=== PATIENT | male | born 1975 | race Caucasian/White ===

== ENCOUNTER 2020-10-26 12:44 | Emergency (ER) | payer BC ==
--- NOTE | 2020-10-26 13:10 | EDM.PDOC ---
ED HPI GENERAL MEDICAL PROBLEM - General Stated Complaint: HIT HIS HEAD Time Seen by Provider: 10/26/20 12:58 Source of Information: Reports: Patient - History of Present Illness INITIAL COMMENTS - FREE TEXT/NARRATIVE: Misha is a 45 y/o male who comes to the ER after he bent over and hit his head on his stove this AM about 9 AM. He is currently on Xarelto for Atrial Fib. He did not have any LOC and denies any nausea/vomiting, or dizziness. He went to work and was going about his normal workday and then a co-worked advised him that if he hit his head and was on blood thinners he probably should be seen in the ER so he called the clinic and was advised to be seen. He is overall doing fine. - Related Data Allergies Allergy/AdvReac Type Severity Reaction Status Date / Time No Known Allergies Allergy Verified 10/26/20 13:15 Home Meds: Home Meds . [Unable to Verify Home Med List] 10/26/20 [History] Review of Systems - Review of Systems Review Of Systems: See Below Constitutional: Reports: No Symptoms Eyes: Reports: No Symptoms Ears: Reports: No Symptoms Nose: Reports: No Symptoms Mouth/Throat: Reports: No Symptoms Respiratory: Reports: No Symptoms Cardiovascular: Reports: No Symptoms GI/Abdominal: Reports: No Symptoms Genitourinary: Reports: No Symptoms Musculoskeletal: Reports: No Symptoms Skin: Reports: No Symptoms Neurological: Reports: No Symptoms Psychiatric: Reports: No Symptoms ED EXAM, GENERAL - Physical Exam Exam: See Below General Appearance: Alert, WD/WN, No Apparent Distress (Adult male), Obese Eye Exam: Bilateral Eye: PERRL Ears: Normal External Exam, Hearing Grossly Normal Nose: Normal Inspection, Normal Mucosa Throat/Mouth: Normal Inspection, Normal Lips, Normal Teeth, Normal Voice, No Airway Compromise Head: Atraumatic, Normocephalic Neck: Normal Inspection, Supple Respiratory/Chest: No Respiratory Distress, Lungs Clear, Chest Non-Tender Cardiovascular: Normal Peripheral Pulses, Regular Rate, Rhythm, No Edema, No Murmur GI/Abdominal: Normal Bowel Sounds, Soft, Non-Tender (Male) Exam: Deferred Rectal (Males) Exam: Deferred Back Exam: Normal Inspection Extremities: Normal Inspection, Normal Range of Motion, Normal Capillary Refill Neurological: Alert, Oriented, CN II-XII Intact, Normal Cognition, Normal Gait, No Motor/Sensory Deficits Psychiatric: Normal Affect, Normal Mood Skin Exam: Warm, Dry, Intact, Normal Color Lymphatic: No Adenopathy Course - Vital Signs Text/Narrative:: 1258 The patient was seen by the SOFTWARE VALIDATION TECHNICIAN. Labs and Head CT ordered. 1355 CT reviewed, negative. CBC stable. Results reviewed with patient. He was given precautions and advised to continue medications as prescribed. Written instructions were given and he left the ER in stable condition. Last Recorded V/S: Last Vital Signs Temp 36.2 C 10/26/20 13:15 Pulse 54 L 10/26/20 13:15 Resp 14 10/26/20 13:15 BP 140/92 H 10/26/20 13:15 Pulse Ox 98 10/26/20 13:15 - Orders/Labs/Meds Labs: Laboratory Tests 10/26/20 Range/Units 13:15 WBC 5.9 (4.0-10.0) x10^3/uL RBC 4.90 (4.5-6.0) x10^6/uL Hgb 14.7 (14.0-18.0) g/dL Hct 41.6 (40.0-52.0) % MCV 84.9 (78.0-93.0) fL MCH 30.0 (26.0-32.0) pg MCHC 35.3 (32.0-36.0) g/dL RDW Coeff of Justino 13.3 (10.0-15.0) % Plt Count 190 (130-400) x10^3/uL Neut % (Auto) 59.3 (50.0-80.0) % Lymph % (Auto) 29.3 (25.0-50.0) % [place] % (Auto) 9.0 (2.0-11.0) % Eos % (Auto) 1.7 (0.0-4.0) % Baso % (Auto) 0.7 (0.2-1.2) % - Radiology Interpretation Free Text/Narrative:: CT Head WO=Assistant Teacher acute intracranial process (See final report) CT Results Date: 10/26/20 CT Results Time: 13:53 Departure - Departure Time of Disposition: 13:55 Disposition: Home, Self-Care 01 Condition: Good Clinical Impression: Current use of senior care anticoagulation Head injury without concussion or intracranial hemorrhage Qualifiers: Encounter type: initial encounter Qualified Code(s): S09.90XA - Unspecified injury of head, initial encounter - Discharge Information *PRESCRIPTION DRUG MONITORING PROGRAM REVIEWED*: Not Applicable *COPY OF PRESCRIPTION DRUG MONITORING REPORT IN PATIENT CORTNEY: Not Applicable Instructions: Head Injury, Adult, [id number], Bleeding Precautions When on Anticoagulant Therapy, Pediatric Sepsis Event Note (ED) - Focused Exam Vital Signs: Vital Signs Temp Pulse Resp BP Pulse Ox 10/26/20 13:15 36.2 C 54 L 14 140/92 H 98 - Assessment/Plan Assessment:: 1)Head Injury 2)Current Use of Long-Term Anticoagulants Plan: Resume all meds as prescribed -Monitor for any further bleeding or changes in neurological status and report to PCP or return to ER
--- NOTE | 2020-10-26 13:53 | CT ---
[id number] CT/CT Head WO IV EXAM: CT Head WO IV CLINICAL DATA: TRAUMA ANTICOAGULATED PATIENT COMPARISON: No previous similar exam is available for comparison. FINDINGS: There is no mass or mass effect. There is no hemorrhage or hydrocephalus. There are no extra-axial fluid collections. There are no sites of abnormal attenuation. IMPRESSION: NO PLAIN CT EVIDENCE OF ACUTE INTRACRANIAL PROCESS. Uday Lei MD 10/26/20 2074 Thank you for allowing us to participate in the care of your patient.
== END 2020-10-26 14:01 | disposition home or self-care (01) ==
LOC: VM.ED 12:44 → SUPCPDRO 12:44 → VM.ED 14:01
DX: S09.90XA Unspecified injury of head, initial encounter (principal); I48.91 Unspecified atrial fibrillation; Z79.01 Long term (current) use of anticoagulants; W22.8XXA Striking against or struck by other objects, initial encounter
CPT/HCPCS: 36415; 70450; 85025; 99284; 99284-25

== ENCOUNTER 2021-05-29 13:05 | Emergency (ER) | payer BC ==
[2021-05-29] MEDS ORDERED: Sodium Chloride 0.9% 10 ML Syringe FLUSH PRN (13:30)
[2021-05-29 13:51] LABS: ANION GAP 10.9 mmol/L (5-15); CHLORIDE,CL 104 mmol/L (98-107); SODIUM,NA 140 mmol/L (136-145)
--- NOTE | 2021-05-29 14:04 | CR ---
[id number] RAD/RAD Chest PA And Lateral EXAM: RAD Chest PA And Lateral INDICATION: CHEST PAIN. COMPARISON: None. DISCUSSION: Cardiomediastinal silhouette is normal in size and contour. No infiltrate, effusion, pneumothorax, or edema. IMPRESSION: No acute cardiopulmonary abnormality. Shiva Rodrigues DO 05/29/21 2745 Thank you for allowing us to participate in the care of your patient.
--- NOTE | 2021-05-29 14:35 | EDM.PDOC ---
ED HPI GENERAL MEDICAL PROBLEM - General Chief Complaint: Chest Pain Stated Complaint: CHEST DISCOMFORT Time Seen by Provider: 05/29/21 13:23 Chest Pain Score (Numeric/FACES): 2 - Related Data Allergies Allergy/AdvReac Type Severity Reaction Status Date / Time No Known Allergies Allergy Verified 10/26/20 13:15 Home Meds: Home Meds . [Unable to Verify Home Med List] 10/26/20 [History] ED ROS GENERAL - Review of Systems Review Of Systems: See Below Constitutional: Reports: No Symptoms HEENT: Reports: No Symptoms Respiratory: Reports: No Symptoms Cardiovascular: Reports: Chest Pain Endocrine: Reports: No Symptoms GI/Abdominal: Reports: No Symptoms : Reports: No Symptoms Musculoskeletal: Reports: Shoulder Pain Skin: Reports: No Symptoms Neurological: Reports: No Symptoms Psychiatric: Reports: No Symptoms Hematologic/Lymphatic: Reports: No Symptoms Immunologic: Reports: No Symptoms ED EXAM, GENERAL - Physical Exam Exam: See Below Exam Limited By: No Limitations General Appearance: Alert, WD/WN, No Apparent Distress Ears: Normal External Exam, Normal Canal, Hearing Grossly Normal, Normal TMs Ear Exam: Bilateral Ear: Auricle Normal, Canal Normal, TM normal Nose: Normal Inspection, Normal Mucosa, No Blood Throat/Mouth: Normal Inspection, Normal Lips, Normal Teeth, Normal Gums, Normal Oropharynx, Normal Voice, No Airway Compromise Head: Atraumatic, Normocephalic Neck: Normal Inspection, Supple, Non-Tender, Full Range of Motion Respiratory/Chest: No Respiratory Distress, Lungs Clear, Normal Breath Sounds, No Accessory Muscle Use, Chest Non-Tender Cardiovascular: Normal Peripheral Pulses, Regular Rate, Rhythm, No Edema, No Gallop, No JVD, No Murmur, No Rub GI/Abdominal: Normal Bowel Sounds, Soft, Non-Tender, No Organomegaly, No Distention, No Abnormal Bruit, No Mass Back Exam: Normal Inspection, Full Range of Motion, NT Extremities: Normal Inspection, Normal Range of Motion, Non-Tender, Normal Capillary Refill, No Pedal Edema Neurological: Alert, Oriented, CN II-XII Intact, Normal Cognition, Normal Gait, Normal Reflexes, No Motor/Sensory Deficits Psychiatric: Normal Affect, Normal Mood Skin Exam: Warm, Dry, Intact, Normal Color, No Rash Lymphatic: No Adenopathy #1 Interpretation EKG Date: 05/29/21 Time: 13:05 Rhythm: NSR Rate (Beats/Min): 61 [place]: Normal P-Wave: Present QRS: Normal ST-T: Normal QT: Normal Comparison: NA - No Prior EKG Course - Vital Signs Last Recorded V/S: Last Vital Signs Temp 36.7 C 05/29/21 13:05 Pulse 59 L 05/29/21 13:05 Resp 18 05/29/21 13:05 BP 155/78 H 05/29/21 13:05 Pulse Ox 96 05/29/21 13:05 - Orders/Labs/Meds Orders: Active Orders 24 hr Category Date Time Status EKG Documentation Completion [RC] STAT Care 05/29/21 13:30 Ordered Sodium Chloride 0.9% [Saline Flush] Med 05/29/21 13:30 Ordered 10 ml FLUSH ASDIRECTED PRN Saline Lock Insert [OM.PC] Routine Oth 05/29/21 13:30 Ordered Medication Orders Sodium Chloride (Sodium Chloride 0.9% 10 Ml Syringe) 10 ml FLUSH ASDIRECTED PRN PRN Reason: Keep Vein Open Labs: Laboratory Tests 05/29/21 05/29/21 05/29/21 Range/Units 13:15 13:15 13:15 WBC 6.0 (4.0-10.0) x10^3/uL RBC 4.92 (4.5-6.0) x10^6/uL Hgb 14.5 (14.0-18.0) g/dL Hct 41.4 (40.0-52.0) % MCV 84.1 (78.0-93.0) fL MCH 29.5 (26.0-32.0) pg MCHC 35.0 (32.0-36.0) g/dL RDW Coeff of Justino 13.0 (10.0-15.0) % Plt Count 202 (130-400) x10^3/uL Immature Gran % (Auto) 0.30 (0.00-0.43) % Neut % (Auto) 62.6 (50.0-80.0) % Lymph % (Auto) 27.0 (25.0-50.0) % [place] % (Auto) 8.4 (2.0-11.0) % Eos % (Auto) 1.2 (0.0-4.0) % Baso % (Auto) 0.5 (0.2-1.2) % Neut # (Auto) 3.7 (1.8-7.7) x10^3/uL Lymph # (Auto) 1.6 (1.0-4.8) x10^3/uL [place] # (Auto) 0.5 (0.0-0.8) x10^3/uL Eos # (Auto) 0.1 (0.0-0.5) x10^3/uL Baso # (Auto) 0.0 (0.0-0.2) x10^3/uL Immature Gran # (Auto) 0.02 (0.00-0.07) x10^3/uL D-Dimer, Quantitative < 0.19 (<=0.58) mg/LFEU Sodium 140 (136-145) mmol/L Potassium 3.9 (3.5-5.1) mmol/L Chloride 104 (98-107) mmol/L Carbon Dioxide 29 (21-32) mmol/L Anion Gap 10.9 (5-15) mmol/L BUN 21 H (7-18) mg/dL Creatinine 1.0 (0.70-1.30) mg/dL Est Cr Clr Drug Dosing 102.39 mL/min Estimated GFR (MDRD) > 60 Glucose 106 H (70-99) mg/dL Calcium 9.1 (8.5-10.1) mg/dL Corrected Calcium 8.9 (8.5-10.1) mg/dL Total Bilirubin 0.8 (0.2-1.0) mg/dL AST 19 (15-37) U/L ALT 33 (16-63) U/L Alkaline Phosphatase 94 (46-116) U/L Troponin I High Sens 6 (<=76) ng/L Total Protein 7.9 (6.4-8.2) g/dL Albumin 4.3 (3.4-5.0) g/dL Globulin 3.6 Albumin/Globulin Ratio 1.19 Meds: Medications Generic Name Dose Route Start Last Admin Trade Name Freq PRN Reason Stop Dose Admin Sodium Chloride 10 ml 05/29/21 13:30 Sodium Chloride 0.9% 10 Ml Syringe FLUSH ASDIRECTED PRN Keep Vein Open Departure - Departure Time of Disposition: 14:36 Disposition: Home, Self-Care 01 Condition: Good Clinical Impression: Atypical chest pain Instructions: Nonspecific Chest Pain, Adult, [id number], Chest Wall Pain Additional Instructions: Follow up with Dr. Omalley if problems persist Likely related to musculoskeletal injury Stay hydrated May take 1,000 mg tylenol every 8 hours. No more than 3,000 in a 24 hour period May also try heat/ice, analgesic creams EKG and labs all normal today Sepsis Event Note (ED) - Evaluation Sepsis Screening Result: No Definite Risk - Focused Exam Vital Signs: Vital Signs Temp Pulse Resp BP Pulse Ox 05/29/21 13:05 36.7 C 59 L 18 155/78 H 96 - Problem List & Annotations (1) Atypical chest pain SNOMED Code(s): 371346069 Code(s): R07.89 - OTHER CHEST PAIN Status: Acute Priority: Medium Current Visit: Yes - Problem List Review Problem List Initiated/Reviewed/Updated: Yes - My Orders Last 24 Hours: My Active Orders 05/29/21 13:30 EKG Documentation Completion [RC] STAT Sodium Chloride 0.9% [Saline Flush] 10 ml FLUSH ASDIRECTED PRN Saline Lock Insert [OM.PC] Routine - Assessment/Plan Last 24 Hours: My Active Orders 05/29/21 13:30 EKG Documentation Completion [RC] STAT Sodium Chloride 0.9% [Saline Flush] 10 ml FLUSH ASDIRECTED PRN Saline Lock Insert [OM.PC] Routine Assessment:: atypical chest pain Plan: Follow up with Dr. Omalley if problems persist Likely related to musculoskeletal injury Stay hydrated May take 1,000 mg tylenol every 8 hours. No more than 3,000 in a 24 hour period May also try heat/ice, analgesic creams EKG and labs all normal today
== END 2021-05-29 14:55 | disposition home or self-care (01) ==
LOC: VM.ED 13:05
DX: R07.89 Other chest pain (principal)
CPT/HCPCS: 71046; 80053; 84484; 85025; 85379; 93010; 99284; 99285-25

== ENCOUNTER 2021-08-22 16:53 | Emergency (ER) | payer OTHER, BC ==
[2021-08-22] MEDS ORDERED: Sodium Chloride 0.9% 10 ML Syringe FLUSH PRN (17:21)
[2021-08-22] MEDS ORDERED: Diphtheria,Pertussis(Acell),Tetanus Vaccine 0.5 ML Syringe IM ONE (17:23)
[2021-08-22] MEDS ORDERED: Iopamidol 612 MG/ML 100 ML Bottle IVPUSH ONE (17:45)
[2021-08-22 17:59] LABS: ANION GAP 12.5 mmol/L (5-15); CHLORIDE,CL 100 mmol/L (98-107); SODIUM,NA 139 mmol/L (136-145)
== END 2021-08-22 19:10 | disposition home or self-care (01) ==
LOC: VM.ED 16:53
DX: S50.811A Abrasion of right forearm, initial encounter (principal); S50.812A Abrasion of left forearm, initial encounter; S60.511A Abrasion of right hand, initial encounter; S60.512A Abrasion of left hand, initial encounter; I10 Essential (primary) hypertension; I48.91 Unspecified atrial fibrillation; Z23 Encounter for immunization; Z86.16 Personal history of COVID-19; Z79.01 Long term (current) use of anticoagulants; V73.5XXA Driver of bus injured in collision with car, pick-up truck or van in traffic accident, initial encounter; Y92.410 Unspecified street and highway as the place of occurrence of the external cause
CPT/HCPCS: 70450; 71260; 72125; 80053; 84484; 85025; 85610; 90471; 90715; 93010; 99283; 99284-25; Q9967

== ENCOUNTER 2021-10-14 11:23 | Emergency (ER) | payer BC, OTHER ==
[2021-10-14 12:07] LABS: ANION GAP 14.5 mmol/L (5-15); CHLORIDE,CL 102 mmol/L (98-107); SODIUM,NA 140 mmol/L (136-145)
== END 2021-10-14 12:28 | disposition home or self-care (01) ==
LOC: VM.ED 11:23
DX: R07.89 Other chest pain (principal); I48.91 Unspecified atrial fibrillation; I10 Essential (primary) hypertension; E78.00 Pure hypercholesterolemia, unspecified; Z86.16 Personal history of COVID-19; Z79.899 Other long term (current) drug therapy; Z79.01 Long term (current) use of anticoagulants
CPT/HCPCS: 36415; 71046; 80053; 82550; 83615; 84484; 85025; 86140; 93005; 93010; 99284; 99285-25

== ENCOUNTER 2022-05-22 15:07 | Emergency (ER) | payer BC ==
[2022-05-22 16:21] LABS: PTT,PARTIAL THROMBOPLSTIN TIME 33.6 SEC (20.5-30.9)
[2022-05-22 16:22] LABS: CHLORIDE,CL 101 mmol/L (98-107); SODIUM,NA 138 mmol/L (136-145)
[2022-05-22 16:23] LABS: ANION GAP 9.7 mmol/L (5-15); ESTIMATED GFR 111 mL/min (>=60)
== END 2022-05-22 16:43 | disposition home or self-care (01) ==
LOC: VM.ED 15:07
DX: R07.89 Other chest pain (principal); I10 Essential (primary) hypertension; I48.91 Unspecified atrial fibrillation; E66.9 Obesity, unspecified; Z68.30 Body mass index [BMI] 30.0-30.9, adult; Z86.16 Personal history of COVID-19; Z79.899 Other long term (current) drug therapy; Z79.01 Long term (current) use of anticoagulants
CPT/HCPCS: 36415; 80053; 83735; 84100; 84484; 85025; 85379; 85610; 85730; 93005; 93010; 99284; 99285

== ENCOUNTER 2023-12-06 01:23 | Emergency (ER) | payer BC ==
[2023-12-06] MEDS: Ketorolac 30 MG/ML SDV IM ONE (01:47)
[2023-12-06] MEDS: Cyclobenzaprine 10 MG Tab PO ONE (01:47)
== END 2023-12-06 02:15 | disposition home or self-care (01) ==
LOC: VM.ED 01:23
DX: M62.830 Muscle spasm of back (principal); I10 Essential (primary) hypertension; Z79.899 Other long term (current) drug therapy; Z86.16 Personal history of COVID-19
CPT/HCPCS: 96372; 99283; A9270; J1885

== ENCOUNTER 2025-07-01 07:35 | Day surgery (SDC) | payer BC ==
[2025-07-01] MEDS: Lactated Ringers 1,000 ML IV SCH (07:54)
[2025-07-01] MEDS ORDERED: Propofol 200 MG/20 ML SDV ONE ×2 (08:23→09:44)
[2025-07-01] MEDS ORDERED: fentaNYL 100 MCG/2 ML SDV ONE (08:23)
== END 2025-07-01 11:04 | disposition home or self-care (01) ==
LOC: VM.SDS 07:35
PROVIDERS: ATTEND Family Medicine
DX: Z12.11 Encounter for screening for malignant neoplasm of colon (principal); D12.3 Benign neoplasm of transverse colon; K63.5 Polyp of colon; I10 Essential (primary) hypertension; F41.9 Anxiety disorder, unspecified; G47.33 Obstructive sleep apnea (adult) (pediatric); E78.00 Pure hypercholesterolemia, unspecified; E66.9 Obesity, unspecified; Z68.43 Body mass index [BMI] 50.0-59.9, adult; Z79.899 Other long term (current) drug therapy
CPT/HCPCS: 00811; J2704; J3010; J7120